=== PATIENT | male | born 1980 | race Native Hawaiian/Other Pacific Islander ===

== ENCOUNTER 2016-11-25 11:20 | Outpatient (CLI) | payer OTHER ==
--- NOTE | 2016-11-25 12:07 | Ultrasound Report ---
BILATERAL BREAST ULTRASOUND: 11/25/16 11:20:00 CLINICAL: 35-year-old male with bilateral breast pain. COMPARISON: None. FINDINGS: Ultrasound of both breasts(including all four quadrants and the retroareolar area) was performed and demonstrated normal fatty structures with no mass, cyst or fluid collection. No evidence of gynecomastia. IMPRESSION: Negative bilateral breast ultrasound. BI-RADS 1 - - Negative RECOMMENDATION: Clinical followup.
--- NOTE | 2016-11-25 15:29 | XRay Report ---
ROUTINE CHEST, TWO VIEWS: History: Chest pain. PA and lateral views demonstrate the heart and mediastinal contour to be of normal size and shape. The lungs are clear and fully expanded and the soft tissues and bony structures are normal. IMPRESSION: Normal study.
== END 2016-11-25 11:21 | disposition home or self-care (01) ==
LOC: EDSEX 11:20 → SPVWC 11:20
PROVIDERS: ATTEND Family Medicine Adult Medicine
DX: N63 Unspecified lump in breast (principal); N64.4 Mastodynia; R07.9 Chest pain, unspecified; M79.89 Other specified soft tissue disorders
CPT/HCPCS: 71020